=== PATIENT | male | born 1955 | race Caucasian/White ===

== ENCOUNTER 2017-10-19 10:33 | Emergency (ER) | payer MEDICAID ==
[~2017-10-19] VITALS: Ht 180.3 cm; Wt 98.0 kg
[~2017-10-19 10:33] MED LIST: ADVAI100I PO; FLUC200T63 PO; MMW SS; NYST100010 PO; PERC5TAB12 PO; PRED50TA PO
[2017-10-19 10:45] VITALS: BP 168/88; PULSE 85; RESP 16; TEMP 99.7; O2SAT 95
[2017-10-19] MEDS ORDERED: ALBUAER3 INH (11:02)
[2017-10-19] MEDS ORDERED: ADVA500A INH (11:02)
[2017-10-19] MEDS ORDERED: AZIT250T3 PO (12:07)
[2017-10-19] MEDS ORDERED: PRED20 PO (12:07)
[2017-10-19] MEDS ORDERED: BENZ100 PO (12:08)
--- NOTE | 2017-10-19 12:08 | PD ---
HPI Chief Complaint: Cold / Flu Symptoms Time Seen by Provider: 11:21 Travel History International Travel<30 days: No Contact w/Intl Traveler<30days: No Traveled to known affect area: No History of Present Illness HPI This is a 62-year-old male here with flulike illness 6 days. He reports intermittent fevers and productive cough. No chest pain or shortness of breath. She does have a history of COPD. Symptom severity is moderate. No aggravating or alleviating factors. PFSH Past Medical History Asthma: Yes COPD: Yes Diminished Hearing: No Respiratory: Yes (COPD) Immunizations Current: Yes Tetanus Vaccination: < 5 Years Influenza Vaccination: No Past Surgical History Other Surgery: Yes (HEMORRHOIDECTOMY) Social History Alcohol Use: No Tobacco Use: No Substance Use: No Allergies-Medications (Allergen,Severity, Reaction): Coded Allergies: No Known Allergies (Verified Adverse Reaction, Unknown, 10/19/17) Reported Meds & Prescriptions Reported Meds & Active Scripts Active Reported Advair Diskus Inh (Fluticasone-Salmeterol Inh) 500-50 Mcg/Blist Aer 1 Puff INH BID Rinse mouth after use. Proair Hfa 8.5 GM Inh (Albuterol Sulfate) 90 Mcg/Act Aer 2 Puff INH Q4-6H PRN 108 mcg/actuation Review of Systems Except as stated in HPI: all other systems reviewed are Neg General / Constitutional: Positive: Fever Eyes: No: Visual changes HENT: No: Headaches Respiratory: Positive: Cough Gastrointestinal: No: Abdominal Pain Genitourinary: No: Dysuria Physical Exam Narrative GENERAL: Alert and well-appearing 62-year-old male. SKIN: Warm and dry. No rash HEAD: Normocephalic. EYES: No injection or drainage. Ear/nose/throat: No TM erythema. Clear nasal discharge. Mild pharyngeal erythema without tonsillar hypertrophy or exudate. NECK: Supple. No meningismus CARDIOVASCULAR: Regular rate and rhythm RESPIRATORY: Breath sounds equal bilaterally. No accessory muscle use. Rhonchorous cough GASTROINTESTINAL: Abdomen soft, non-tender, nondistended. MUSCULOSKELETAL: No cyanosis, or edema. BACK: No CVA tenderness. Data Data Last Documented VS Vital Signs Date Time Temp Pulse Resp B/P (MAP) Pulse Ox O2 Delivery O2 Flow Rate FiO2 10/19/17 11:04 20 95 Room Air 10/19/17 10:45 99.7 85 168/88 (114) [facility] Medical Decision Making Medical Screen Exam Complete: Yes Emergency Medical Condition: Yes Differential Diagnosis Pneumonia, bronchitis, influenza Narrative Course This is a 62-year-old male here with flulike illness 6 days now with productive cough for the last 2 days. He is well-appearing. His vital signs are stable. Patient will be treated for bronchitis. Diagnosis Primary Impression: Bronchitis Referrals: Primary Care Physician Additional Instructions: Antibiotics as prescribed. Steroids as directed. Stay well hydrated by drinking plenty of fluids. Return if he developed new or worsening symptoms. Follow-up the primary doctor. Scripts Benzonatate (Tessalon Perles) 100 Mg Cap 200 MG PO TID Y for COUGH, #14 CAP 0 Refills Prov: Michelle Anderson 10/19/17 Prednisone (Prednisone) 20 Mg Tab 40 MG PO DAILY, #8 TAB 0 Refills Take 40 mg (2 tablets) daily for 5 days Prov: Michelle Anderson 10/19/17 Azithromycin (Azithromycin) 250 Mg Tab 250 MG PO DIRECTED for Infection, #6 TAB 0 Refills Take 2 tabs (500 mg) on day 1 then 1 tab daily x 4 days. Prov: Michelle Anderson 10/19/17 Michelle Anderson Oct 19, 2017 12:08
== END 2017-10-19 12:16 | disposition home or self-care (01) ==
LOC: PHEFT 10:33
DX: J40 Bronchitis, not specified as acute or chronic (principal); J44.9 Chronic obstructive pulmonary disease, unspecified
CPT/HCPCS: 99283